=== PATIENT | male | born 1980 | race Caucasian/White ===

== ENCOUNTER → 2023-06-14 13:27 | Outpatient (CLI) | payer OTHER, SELFPAY ==
--- NOTE | 2023-06-14 13:29 | DI.RAD.S_ITS ---
PROCEDURE: XR THORACIC SPINE 2V INDICATIONS: t-spine pain TECHNIQUE: 2 views of the thoracic spine were acquired. COMPARISON: None. FINDINGS: Bones: Irregular superior endplate deformity is present at T6. It is noted that this level does not demonstrate posterior fusion. No suspicious bony lesions. 12 pairs of ribs are noted, and appear intact where visualized. Multilevel thoracic fixation. Hardware is intact without hardware fracture or periprosthetic lucency to suggest loosening. Alignment is stable. Soft tissues: No paravertebral stripe thickening. IMPRESSION: Superior endplate deformity at non fused level of T6. Chronicity is indeterminate. Recommend correlation point tenderness and history of trauma. As clinically indicated, MRI may be obtained for further evaluation of chronicity. Dictated by: Elaine Altman M.D. on 06/14/2023 at 16:25 Approved by: Elaine Altman M.D. on 06/14/2023 at 16:26
== END ==
LOC: RAD 13:29
PROVIDERS: PCP Family Medicine; Referring Provider Family Medicine; Visit Provider Family Medicine
DX: M54.6 Pain in thoracic spine (principal); Z98.1 Arthrodesis status
CPT/HCPCS: 72070

== ENCOUNTER 2024-04-15 17:06 | Emergency (ER) | payer BC, SELFPAY ==
[2024-04-15 17:10] VITALS: BP 143/61; PULSE 72; RESP 16; TEMP 37.1; O2SAT 96; BMI 25.4
[2024-04-15 17:34] LABS: Add Manual Diff / Slide Review NO; Basophils Absolute Auto 0 /uL (0-100); Basophils Percent Auto 0.4 % (0-2); Eosinophils Absolute Auto 100 /uL (0-450); Eosinophils Percent Auto 0.8 % (2-4); Hematocrit 46.7 % (41-53); Hemoglobin 15.6 g/dL (13.5-17.5); Lymphocytes Absolute Auto 400 /uL (1100-4500); Lymphocytes Percent Auto 3.6 % (25-40); Mean Corpuscular HGB Conc 33.5 % (30-36); Mean Corpuscular Volume 89.6 fL (80-100); Monocytes Absolute Auto 400 /uL (0-900); Monocytes Percent Auto 3.9 % (3-14); Neutrophils Absolute Auto 10300 /uL (1500-7000); Neutrophils Percent Auto 91.3 % (50-75); Platelet Count 281 X10^3/uL (150-400); Red Blood Cell Count 5.21 X10^6/uL (4.5-5.9); Red Cell Distribution Width 13.4 % (11.6-14.8); White Blood Cell Count 11.3 X10^3/uL (4.5-11.0)
[2024-04-15 17:41] LABS: Alanine Aminotransferase 52 IU/L (<50); Albumin 4.8 g/dL (3.5-5.0); Albumin Globulin Ratio 1.7 (1.0-2.8); Alkaline Phosphatase 57 U/L (38-126); Aspartate Aminotransferase 51 IU/L (17-59); Bilirubin Total 1.7 mg/dL (0.2-1.3); Blood Urea Nitrogen 24 mg/dL (9-20); Calcium 9.2 mg/dL (8.4-10.2); Carbon Dioxide 27 mmol/L (22-32); Chloride 105 mmol/L (98-107); Estimated Glomerular Filt Rate > 60 mL/min (>60); Globulin 2.9 g/dL (1.7-4.1); Glucose 130 mg/dL (70-100); HEMOLYSIS < 15 (0-50); Lipase 53 U/L (23-300); Potassium 4.2 mmol/L (3.4-5.1); Sodium 140 mmol/L (137-145); Total Protein 7.7 g/dL (6.3-8.2)
[2024-04-15 17:46] LABS: Bacteria Urine None Seen; Culture Indicated Urine Cult Not Indicated; Ictotest Urine Negative (Negative); RBC Urine None Seen (0-5/HPF); Squamous Epithelial Cell Urine None Seen (0-5/HPF); Urine Volume 10mL (spun); WBC Urine None Seen (0-5/HPF)
--- NOTE | 2024-04-15 18:14 | DI.CT.S_ITS ---
PROCEDURE: CT ABDOMEN PELVIS W CON INDICATIONS: Lower abdominal pain, vomiting, eval for obstruction TECHNIQUE: After the administration of intravenous contrast, axial sections acquired from the lung bases to the pubic symphysis. Coronal and sagittal reformats were performed. For radiation dose reduction, the following was used: automated exposure control, adjustment of mA and/or kV according to patient size. COMPARISON: None. FINDINGS: Image quality: There is artifact associated with the metallic hardware. Artifact from the metallic hardware is reduced by metal reconstruction algorithm. Lower Chest: No significant findings. ABDOMEN: Liver: No solid mass. Gallbladder: No radiopaque gallstones or wall thickening. Biliary ducts: No biliary dilation. Pancreas: No ductal dilation. Spleen: Size is within normal limits. Adrenal Glands: No adrenal nodules. Kidneys and Ureters: No hydronephrosis. No solid mass. No complex renal cystic lesion which requires follow up. Stomach and Bowel: [id number] generalized colonic wall thickening can be seen, beginning at the level of the transverse colon and continuing through the rectum. No dilated loops of small bowel are seen. A normal appendix is noted. Peritoneum: Negative for peritoneal abscess. No abnormal intraperitoneal fluid. No free air. Ventral Wall: A mild periumbilical hernia is seen, containing fat. Abdominal Nodes: No retroperitoneal or mesenteric adenopathy by size criteria. Vessels: Aorta and inferior vena cava are normal in size. PELVIS: Pelvic Organs: Unremarkable. Bladder: No bladder wall thickening, accounting for underdistention. Pelvic Nodes: No enlarged lymph nodes. Miscellaneous: No inguinal hernias are seen. Bones: No aggressive osseous abnormality. IMPRESSION: Moderate distal colonic wall thickening can be seen. Please correlate with potential infectious and inflammatory causes of colitis. No findings of perforation or abscess can be seen. Negative for small bowel obstruction. Normal appendix. Dictated by: Malachi Wilson M.D. on 04/15/2024 at 17:32 Approved by: Malachi Wilson M.D. on 04/15/2024 at 17:36
--- NOTE | 2024-04-15 19:22 | ED.GENADULT ---
HPI - General Adult General Chief complaint: Abdominal Pain Stated complaint: abd px Time Seen by Provider: 04/15/24 19:15 Source: patient Mode of arrival: Ambulatory Limitations: no limitations History of Present Illness HPI narrative: Patient was a 44-year-old male no prior abdominal surgeries who is here for evaluation of concern for a bowel obstruction. He states he was a generalized abdominal pain all day today. Reported to me that he was not had a bowel movement however in the triage note states he was had a small amount of diarrhea. No urinary issues. States that he feels like he was constipated/blocked up. States throughout the day today he has been able to drink a small amount of fluids but then eventually vomits everything up. No fevers. No chest pain or shortness of breath. No recent travel. No recent antibiotics. No known sick contacts. Related Data Previous Rx's Medication Instructions Recorded dextroamphetamine-amphetamine 15 15 mg PO BID PRN adhd #60 tabs 03/31/24 mg tablet (Adderall) dextroamphetamine-amphetamine 15 15 mg PO BID PRN adhd #60 tabs 03/31/24 mg tablet (Adderall) dextroamphetamine-amphetamine 15 15 mg PO BID PRN adhd #60 tabs 03/31/24 mg tablet (Adderall) ondansetron 4 mg disintegrating 4 mg PO Q6H PRN nausea and 04/15/24 tablet vomiting #10 tabs Allergies Allergy/AdvReac Type Severity Reaction Status Date / Time No Known Drug Allergies Allergy Unverified 03/31/24 14:37 Review of Systems Review of Systems Narrative: See HPI Patient History Medical History Acne ADHD Elevated blood pressure reading without diagnosis of hypertension Surgical History (Updated 03/25/22 @ 20:34 by Nereyda Teixeira) Anesthesia History of spinal fusion Social History Smoking Status: Former smoker Smoking Status: Former smoker Exam Initial Vital Signs Initial Vital Signs: Vital Signs Temperature 98.7 F 04/15/24 17:10 Pulse Rate 72 04/15/24 17:10 Respiratory Rate 16 04/15/24 17:10 Blood Pressure 143/61 H 04/15/24 17:10 Pulse Oximetry 96 04/15/24 17:10 Oxygen Delivery Method Room Air 04/15/24 17:10 Const General: cooperative, comfortable and No ill appearing [facility] Head: normal to inspection and normocephalic Resp Effort & Inspection: normal respiratory effort Auscultation: clear to auscultation bilaterally Cardio Rate: regular rate Rhythm: regular rhythm GI Inspection: normal to inspection and non-distended Palpation: soft, No firm, No guarding, No rigid and tender Skin General: no rashes or lesions noted Neuro General: patient alert, patient awake and moves all extremities Extrem General: capillary refill normal Course Orders Ordered: ED Orders 04/15/24 17:23 Complete Blood Count AUTO DIFF Stat Comprehensive Metabolic Panel Stat Lipase Stat 04/15/24 17:30 Ictotest Urine Stat Urine Microscopic Stat 04/15/24 18:14 CT abdomen pelvis w con Stat Discontinued Medications Ondansetron HCl (Ondansetron 4 Mg/2 Ml Inj) 4 mg IV NOW PRN PRN Reason: Nausea And Vomiting Ondansetron HCl (Ondansetron 4 Mg Odt) 4 mg PO NOW PRN PRN Reason: Nausea And Vomiting Last Admin: 04/15/24 19:54 Dose: 4 mg Documented By: ERVIN Ondansetron HCl (Ondansetron 4 Mg Odt Prepack) 1 bottle MISC DIRECTED ONE Stop: 04/15/24 21:02 Last Admin: 04/15/24 21:10 Dose: 1 bottle Documented By: ERVIN Vital Signs Vital signs: Vital Signs - 8 hr 04/15/24 17:10 04/15/24 21:16 Temperature 98.7 F 98.6 F Pulse Rate 72 80 Respiratory Rate 16 12 Blood Pressure 143/61 H 122/76 Pulse Oximetry 96 100 Oxygen Delivery Method Room Air Room Air Medical Decision Making Lab Data Lab results reviewed: Yes I reviewed the patient's lab results. 04/15/24 17:23 04/15/24 17:23 Labs: Lab Results 04/15/24 04/15/24 Range/Units 17:23 17:30 WBC 11.3 H (4.5-11.0) X10^3/uL RBC 5.21 (4.5-5.9) X10^6/uL Hgb 15.6 (13.5-17.5) g/dL Hct 46.7 (41-53) % MCV 89.6 (80-100) fL MCH 30.0 (26-34) PG MCHC 33.5 (30-36) % RDW 13.4 (11.6-14.8) % Plt Count 281 (150-400) X10^3/uL Neut % (Auto) 91.3 H (50-75) % Lymph % (Auto) 3.6 L (25-40) % [place] % (Auto) 3.9 (3-14) % Eos % (Auto) 0.8 L (2-4) % Baso % (Auto) 0.4 (0-2) % Neut # (Auto) 75883 H (5262-6513) /uL Lymph # (Auto) 400 L (1828-4487) /uL Dyer # (Auto) 400 (0-900) /uL Eos # (Auto) 100 (0-450) /uL Baso # (Auto) 0 (0-100) /uL Sodium 140 (137-145) mmol/L Potassium 4.2 (3.4-5.1) mmol/L Chloride 105 (98-107) mmol/L Carbon Dioxide 27 (22-32) mmol/L BUN 24 H (9-20) mg/dL Creatinine 1.00 (0.66-1.25) mg/dL Estimated GFR > 60 (>60) mL/min BUN/Creatinine Ratio 24.0 H (6-22) Glucose 130 H (70-100) mg/dL Calcium 9.2 (8.4-10.2) mg/dL Total Bilirubin 1.7 H (0.2-1.3) mg/dL AST 51 (17-59) IU/L ALT 52 H (<50) IU/L Alkaline Phosphatase 57 (38-126) U/L Total Protein 7.7 (6.3-8.2) g/dL Albumin 4.8 (3.5-5.0) g/dL Globulin 2.9 (1.7-4.1) g/dL Albumin/Globulin Ratio 1.7 (1.0-2.8) Lipase 53 (23-300) U/L Ur Bilirubin Confirm Negative (Negative) Urine RBC None seen (0-5/HPF) Urine WBC None seen (0-5/HPF) Ur Squamous Epith Cells None seen (0-5/HPF) Urine Bacteria None seen (None) Ur Culture Indicated? Cult not indicated Vol Urine Centrifuged 10ml (spun) Urine Dip Bedside Urine Glucose Negative Bedside Urine Bilirubin + 1 Bedside Urine Ketone ++ 40 Urine Specific [place] 1.025 Bedside Urine Occult Blood - Negative Bedside Urine pH 5.0 Bedside Urine Protein +/- 15 Bedside Urine Urobilinogen - Negative Bedside Urine Nitrite - Negative Bedside Urine Leukocytes - Negative Esterase Point of care testing: Urine Dip Bedside Urine Glucose Negative Bedside Urine Bilirubin + 1 Bedside Urine Ketone ++ 40 Urine Specific [place] 1.025 Bedside Urine Occult Blood - Negative Bedside Urine pH 5.0 Bedside Urine Protein +/- 15 Bedside Urine Urobilinogen - Negative Bedside Urine Nitrite - Negative Bedside Urine Leukocytes - Negative Esterase Imaging Data CT scan - abdomen/pelvis: Radiologist's Impression: PROCEDURE: CT ABDOMEN PELVIS W CON INDICATIONS: Lower abdominal pain, vomiting, eval for obstruction TECHNIQUE: After the administration of intravenous contrast, axial sections acquired from the lung bases to the pubic symphysis. Coronal and sagittal reformats were performed. For radiation dose reduction, the following was used: automated exposure control, adjustment of mA and/or kV according to patient size. COMPARISON: None. FINDINGS: Image quality: There is artifact associated with the metallic hardware. Artifact from the metallic hardware is reduced by metal reconstruction algorithm. Lower Chest: No significant findings. ABDOMEN: Liver: No solid mass. Gallbladder: No radiopaque gallstones or wall thickening. Biliary ducts: No biliary dilation. Pancreas: No ductal dilation. Spleen: Size is within normal limits. Adrenal Glands: No adrenal nodules. Kidneys and Ureters: No hydronephrosis. No solid mass. No complex renal cystic lesion which requires follow up. Stomach and Bowel: [id number] generalized colonic wall thickening can be seen, beginning at the level of the transverse colon and continuing through the rectum. No dilated loops of small bowel are seen. A normal appendix is noted. Peritoneum: Negative for peritoneal abscess. No abnormal intraperitoneal fluid. No free air. Ventral Wall: A mild periumbilical hernia is seen, containing fat. Abdominal Nodes: No retroperitoneal or mesenteric adenopathy by size criteria. Vessels: Aorta and inferior vena cava are normal in size. PELVIS: Pelvic Organs: Unremarkable. Bladder: No bladder wall thickening, accounting for underdistention. Pelvic Nodes: No enlarged lymph nodes. Miscellaneous: No inguinal hernias are seen. Bones: No aggressive osseous abnormality. IMPRESSION: Moderate distal colonic wall thickening can be seen. Please correlate with potential infectious and inflammatory causes of colitis. No findings of perforation or abscess can be seen. Negative for small bowel obstruction. Normal appendix. MDM Narrative Medical decision making narrative: benign exam. Does have a slight leukocytosis but he was also been vomiting. CT scan shows no signs of bowel obstruction. He does have generalized colitis. No indication for antibiotics. Urinalysis not consistent with an infection. after Zofran he was able to tolerate oral intake. No indication for admission to the hospital or emergent surgical consultation. Will discharge home with a prescription for Zofran. He was given return precautions. He expressed understanding and agreement with the plan. Discharge Plan Departure Patient Disposition: Home Clinical Impression: Colitis Instructions: DI for Colitis Activity Restrictions/Additional Instructions: I would not be surprised if he developed diarrhea over the next couple days. Be sure that you were increasing your fluid intake. Recommend a bland diet with a focus on fluids. Use the nausea medication as needed. Return to the emergency department for new symptoms. Prescriptions: New ondansetron 4 mg tablet,disintegrating 4 mg PO Q6H PRN (Reason: nausea and vomiting) Qty: 10 0RF No Action dextroamphetamine-amphetamine [Adderall] 15 mg tablet 15 mg PO BID PRN (Reason: adhd) Qty: 60 0RF Rx Instructions: administer doses at least 4-6 hours apart. rx 1/3 dextroamphetamine-amphetamine [Adderall] 15 mg tablet 15 mg PO BID PRN (Reason: adhd) Qty: 60 0RF Rx Instructions: administer doses at least 4-6 hours apart. rx 2/3 dextroamphetamine-amphetamine [Adderall] 15 mg tablet 15 mg PO BID PRN (Reason: adhd) Qty: 60 0RF Rx Instructions: administer doses at least 4-6 hours apart. rx 3/3 Referrals: Boubacar Wisdom DO [Primary Care Provider] - Stand Alone Forms: Patient Portal/API/Survey
[2024-04-15] MEDS: ONDANSETRON 4 MG ODT PO (19:54)
[2024-04-15] MEDS: ONDANSETRON 4 MG ODT PREPACK 1 BOTTLE MISC (21:10)
[2024-04-15 21:16] VITALS: BP 122/76; PULSE 80; RESP 12; TEMP 37; O2SAT 100
== END 2024-04-15 21:27 | disposition home or self-care (01) ==
PROVIDERS: Emergency Medicine; Emergency Provider Emergency Medicine; PCP Family Medicine
DX: K52.9 Noninfective gastroenteritis and colitis, unspecified (principal)
CPT/HCPCS: 36415; 74177; 80053; 81003; 81015; 83690; 85025; 99283; 99284; J2405